=== PATIENT | female | born 1940 | race American Indian/Alaskan Native ===

== ENCOUNTER 2019-05-09 14:22 | Outpatient (CLI) | payer MEDICARE ==
--- NOTE | 2019-05-09 17:04 | XRay Report ---
Metastatic Bone Survey 16 views HISTORY: RESTAGING EVALUATION COMPARISON: No relevant prior imaging study available. FINDINGS: Bones and joints: Scattered tiny lucent lesions are seen throughout the skull. No additional lucent o r sclerotic lesions are identified. A compression fracture of L4 is of uncertain age. No additional a cute fracture or dislocation is seen. There are degenerative changes of the shoulders, pelvis, knees and spine. Soft tissues: No significant abnormality. IMPRESSION: 1. Tiny lucent lesions throughout the skull may represent multiple myeloma or metastases. Please co rrelate with the clinical findings. 2. No additional suspicious bone lesions. 3. Compression fracture of L4 is of uncertain age. Please correlate with the clinical findings. Signer Name: Rakesh Alba MD Signed: 05/09/2019 5:00 PM Workstation Name: [id number]
== END 2019-05-09 14:23 | disposition home or self-care (01) ==
LOC: SPVIMAG 14:22
PROVIDERS: ATTEND Internal Medicine Hematology & Oncology
DX: C50.212 Malignant neoplasm of upper-inner quadrant of left female breast (principal); C50.919 Malignant neoplasm of unspecified site of unspecified female breast; R19.7 Diarrhea, unspecified
CPT/HCPCS: 77074

== ENCOUNTER 2020-02-08 12:29 | Outpatient (CLI) | payer MEDICARE ==
--- NOTE | 2020-02-08 15:12 | Ultrasound Report ---
US soft tissue head and neck INDICATION / CLINICAL INFORMATION: I89.1Lymphangitis/MASS OF RIGHT NECK/POSSIBLE LYMPH NODE. TECHNIQUE: Limited ultrasound evaluation of the right submandibular region in the area of interest as indicated by the patient and ordering provider. COMPARISON: None available. FINDINGS: Heterogeneously echogenic submandibular focus measuring 5.2 x 3.0 x 3.6 cm with increased vascularity relative to the adjacent soft tissues. There is an adjacent 1.0 cm calcific focus. IMPRESSION: 1. Findings suggestive of right-sided submandibular sialoadenitis with possible 1 cm obstructing ston e. Recommend clinical correlation and further follow-up as warranted. Signer Name: Bill Mccarthy MD Signed: 02/08/2020 3:08 PM Workstation Name: [id number]
== END 2020-02-08 12:30 | disposition home or self-care (01) ==
LOC: US 12:29
PROVIDERS: ATTEND Surgery
DX: I89.1 Lymphangitis (principal)
CPT/HCPCS: 76536

== ENCOUNTER 2020-06-04 14:26 | Outpatient (CLI) | payer MEDICARE ==
--- NOTE | 2020-06-04 17:42 | Mammography Report ---
DIGITAL SCREENING MAMMOGRAM WITH CAD, 06/04/2020 CLINICAL INFORMATION / INDICATION: Routine screening mammography. TECHNIQUE: Digital bilateral 2D mammography was obtained in the craniocaudal and mediolateral obliqu e projections. This examination was interpreted with the benefit of Computer-Aided Detection analysis . COMPARISON: 05/13/2019, 04/22/2018 FINDINGS: Breast Density: There are scattered areas of fibroglandular density. No dominant mass, suspicious calcifications, or architectural distortion in either breast. Postlumpectomy and radiation change is again noted in the left breast and is stable in appearance. Ov erall, no significant interval change. IMPRESSION: No mammographic evidence of malignancy. Follow up recommendation: Routine yearly BI-RADS Category 2: Benign. A "normal" or negative report should not discourage follow up or biopsy of a clinically significant f inding. A written summary of these findings will be mailed to the patient. The patient will be entered into a mammography reporting system which will generate a reminder letter for the patient's next appointmen t at the appropriate interval. The [employer] recommends yearly mammograms starting at age 40 and continuing as l toyin as a woman is in good health. Breast MRI is recommended for women with an approximate 20-25% or greater lifetime risk of breast cancer, including women with a strong family history of breast or ova arcelia cancer or who have been treated for Hodgkin's disease. Signer Name: Addis Garcia MD Signed: 06/04/2020 5:37 PM Workstation Name: [id number]
== END 2020-06-04 14:27 | disposition home or self-care (01) ==
LOC: SPVWC 14:26
PROVIDERS: ATTEND Surgery
DX: Z12.31 Encounter for screening mammogram for malignant neoplasm of breast (principal); N64.89 Other specified disorders of breast; N63.10 Unspecified lump in the right breast, unspecified quadrant; N63.20 Unspecified lump in the left breast, unspecified quadrant
CPT/HCPCS: 77067